=== PATIENT | female | born 1995 | race Caucasian/White ===

== ENCOUNTER → 2019-03-09 18:29 | Outpatient (ROUT) | payer BC, OTHER, SELFPAY | PROVIDERS: Visit Provider Family Medicine | DX: Z34.00 Encounter for supervision of normal first pregnancy, unspecified trimester (principal) | CPT/HCPCS: 87081 ==

== ENCOUNTER 2019-03-23 10:05 | Outpatient (CLI) | payer OTHER, SELFPAY | END 2019-03-23 10:47 | disposition home or self-care (01) | LOC: LABOR 10:51 → OB 16:07 | PROVIDERS: Visit Provider Family Medicine | DX: O26.893 Other specified pregnancy related conditions, third trimester (principal); Z3A.38 38 weeks gestation of pregnancy; R10.2 Pelvic and perineal pain | CPT/HCPCS: 59025; G0378; G0379 ==

== ENCOUNTER 2019-03-29 03:02 | Outpatient (CLI) | payer OTHER, SELFPAY | END 2019-03-29 04:30 | disposition home or self-care (01) | LOC: OB 03-31 13:38 | PROVIDERS: Visit Provider Family Medicine | DX: Z34.03 Encounter for supervision of normal first pregnancy, third trimester (principal); Z3A.39 39 weeks gestation of pregnancy | CPT/HCPCS: 59025; G0378; G0379 ==

== ENCOUNTER 2019-03-29 07:24 | Inpatient (IN) | payer OTHER, SELFPAY ==
[2019-03-29 09:01] LABS: Add Manual Diff / Slide Review NO; Basophils Absolute Auto 0 /uL (0-100); Basophils Percent Auto 0.1 % (0-2); Eosinophils Absolute Auto 0 /uL (0-450); Hematocrit 36.3 % (36-46); Hemoglobin 12.5 g/dL (12.0-16.0); Lymphocytes Absolute Auto 1200 /uL (1100-4500); Lymphocytes Percent Auto 6.7 % (25-40); Mean Corpuscular HGB Conc 34.4 % (30-36); Mean Corpuscular Hemoglobin 31.8 PG (26-34); Mean Corpuscular Volume 92.3 fL (80-100); Monocytes Absolute Auto 800 /uL (0-900); Monocytes Percent Auto 4.5 % (3-14); Neutrophils Absolute Auto 16100 /uL (1500-7000); Neutrophils Percent Auto 88.7 % (50-75); Platelet Count 224 X10^3/uL (150-400); Red Blood Cell Count 3.93 X10^6/uL (4.0-5.2); White Blood Cell Count 18.2 X10^3/uL (4.5-11.0)
[2019-03-29 09:14] VITALS: BP 118/65
[2019-03-29] MEDS: ONDANSETRON 4 MG/2 ML INJ IV (13:04)
[2019-03-29] MEDS: LACTATED RINGERS 1,000 ML 100 ML IV (13:09)
[2019-03-29] MEDS: CITRIC ACID/SODIUM CITRATE 15 ML SOLUTION 30 ML PO (18:01)
[2019-03-29] MEDS: OXYTOCIN 10 UNIT/ML VIAL 20 UNIT (19:43)
--- NOTE | 2019-03-29 20:17 | P.PCNOB_ITS ---
Labor & Delivery Delivery date: 03/29/19 Intrapartal events: None Cervical ripening method: none Delivery augmentation: rupture of membranes Delivery monitor: external FHT Route of delivery: L&D Laceration Description: Vaginal - 1st Degree Delivery repair: chromic Estimated blood loss (mL): 200 Anesthesia type: Epidural Complications: none Narrative: Identifying data: A 24-year-old at 39 and 3/7 weeks estimated gestational age presents to Labor and delivery in active labor and requesting an epidural. She had an unremarkable . She transferred care because she moved from [place] to [place] at about 26 weeks. GBS negative. Intact bag of water on presentation. Rh positive, status post Tdap Stage I lasted 12-1/2 hours Patient was noted to have made cervical change on her 2nd time to Labor and delivery on the date of delivery and was felt to be in active labor was requesting pain management requesting epidural. She was 3.5 cm dilated 80% effaced -1 station. Epidural was placed. We had difficulty keeping her comfortable because the epidural was low and she received multiple boluses and still was feeling significant discomfort in her upper upper abdomen with contractions. She had significant back labor as well prior to the epidural and still continued to have back pain. A 2nd epidural was placed at 4:00 p.m. which provided excellent analgesia. Artificial rupture membranes was performed at 12:30 p.m. which was 7 hours prior to delivery. Clear fluid was found. External heart monitor was used throughout stage I and showed a category 1 tracing. There were few periods of lower baseline into the low 100s and variable D cells with contractions but great variability during these decelerations and they were brief and not repetitive. Baseline was generally in the 120s to 130s with accelerations and moderate variability throughout. There were periods of sleep. External tocometer showed contractions every 2-4 minutes. Patient was noted to be complete at about 17 15 and she was allowed to labor down until 18 30 at which point she began pushing she was at 0 station at this time. Stage II lasted 58 minutes She was excellent pusher and was able to quickly bring the baby down. She c ontinued to be very comfortable with epidural. External heart monitor was used throughout the stay showing a baseline in the 1 teens to 120s with moderate variability and accelerations and deceleration into the 100s with pushing. She was able to lift the head sit on the perineum for quite some time and heart rate stayed in the mid 100s in 90s. She continue pushing and baby presented in the right occiput anterior position and very tight fit but baby was eventually pushed out and checked for cord and then anterior and posterior shoulders delivered without difficulty and baby was placed on mom's chest. Stage III lasted 6 minutes Normal spontaneous vaginal delivery of an intact placenta with a central cord insertion with a three-vessel cord. There was estimated blood loss of 200 cc or less. Tandem use of Pitocin was given prior to delivery of the placenta intramuscularly. There was a very small first-degree vaginal laceration and no other lacerations. There was no perineal laceration and no periurethral lacerations and no vaginal sidewall lacerations there was a periurethral cystic lesion that this remained intact. Who is approximately the size of a marbl. The vaginal laceration was repaired with 3 0 chromic. Baby's Apgars were 9 at 1 minute and 9 at 5 minutes and weight is pending. At the time this dictation both mom and baby are in stable condition.
--- NOTE | 2019-03-29 20:25 | PM.OBPNLAB ---
Date/Time Date Patient Seen: 03/29/19 Time Patient Seen: 17:15 Pain Control Pain control: epidural Comments: Patient is now comfortable and resting comfortably Pelvic Exam Dilation (cm): 10 station: -1 Amniotic membrane status: Ruptured Contractions Contractions on admission: regular Monitor mode: External Contraction frequency (min): 2 Contraction duration (min): 60 Contraction pattern: Regular Contraction intensity: Moderate Status status: Category l Heart Rate Baseline: 120 Monitor Accelerations: Present Monitor Decelerations: Variable Monitor Variability: Moderate Assessment and Plan Assessment: active labor Plan: continuous present management Comments: Patient is complete and comfortable. We will allow her to sleep and labored down and then will begin pushing in approximately an hour. A category 1 tracing. Previous negative. Continue with present care.
--- NOTE | 2019-03-29 20:28 | PM.OBHP.1 ---
OB HPI History of Present Condition Chief complaint: maternity Narrative: Mali Hunt is a 24 year old female at 39 and 3 7 weeks estimated gestational age with an EDC of 04/02/2019 based on LMP and 1st trimester ultrasound presents to Labor and delivery with complaints of painful uterine contractions that are now making cervical change and she is admitted in active labor and requesting epidural. Patient was in labor and delivery earlier in the night and was not making significant cervical change and she was sent home and she returned approximately 3 hours later with good cervical change. Past OB history: Unremarkable this is her 1st Past medical history: 1. Depression 2. Previous smoker Medications: vitamins Allergies: No history of allergies. The thought at 1 point she was allergic to IV Profant but she is not she has been taking it without difficulty though not taking it during this Past surgical history: Unremarkable care was begun early on. She initially was seen at [place] in clinic in telling him and then transferred care at 24 weeks due to moving to [place]. She had approximately 12 visits. Her blood pressure remained stable 100-110/52-64. She gained approximately 20 lb. Serology A positive, antibody screen negative, immune to rubella, history of chickenpox. VDRL hepatitis B negative HIV negative. Glucose tolerance test 103. Quad screen negative. Group B strep negative tetanus shot 01/30/2019 with pertussis Evaluation Evaluation Laboratory results: Laboratory Tests 03/29/19 03/29/19 08:15 08:15 WBC 18.2 H RBC 3.93 L Hgb 12.5 Hct 36.3 MCV 92.3 MCH 31.8 MCHC 34.4 RDW 13.0 Plt Count 224 Neut % (Auto) 88.7 H Lymph % (Auto) 6.7 L [place] % (Auto) 4.5 Eos % (Auto) 0.0 L Baso % (Auto) 0.1 Neut # (Auto) 30709 H Lymph # (Auto) 1200 [place] # (Auto) 800 Eos # (Auto) 0 Baso # (Auto) 0 Blood Type A Positive Antibody Screen Negative [facility] Social History Smoking Status: Former smoker Social History Smoking Status: Former smoker Meds Home Medications and Allergies Home Medications Medication Instructions Recorded Confirmed Type vit no.[id number] 1 tab PO DAILY 03/29/19 03/29/19 History [Classic ] Allergies Allergy/AdvReac Type Severity Reaction Status Date / Time No Known Drug Allergies Allergy Verified 03/29/19 09:18 Review of Systems Review of Systems Narrative: No abdominal pain. No lower extremity edema. No headaches. No change in fluid. ROS Unobtainable: All systems reviewed & are unremarkable except as noted in HPI and below Exam Vital Signs (past 8 hours): Afebrile vital signs are stable HEENT unremarkable Neck is supple without adenopathy Chest: Clear to auscultation without wheezes rhonchi or crackles Cor: Regular rate and rhythm without murmur Abdomen: Gravid, vertex, estimated weight 8 lb Extremities: No edema and DTRs are intact Cervical exam shows patient is 45 cm 90% effaced and -1 station. heart tracing baseline 120 to 130s with moderate variability with accelerations category 1 tracing. Uterine contractions every 2-3 minutes Objective Labs Result Diagrams: 03/29/19 08:15 Labs: Laboratory Results - last 24 hr 03/29/19 03/29/19 08:15 08:15 WBC 18.2 H RBC 3.93 L Hgb 12.5 Hct 36.3 MCV 92.3 MCH 31.8 MCHC 34.4 RDW 13.0 Plt Count 224 Neut % (Auto) 88.7 H Lymph % (Auto) 6.7 L [place] % (Auto) 4.5 Eos % (Auto) 0.0 L Baso % (Auto) 0.1 Neut # (Auto) 68604 H Lymph # (Auto) 1200 [place] # (Auto) 800 Eos # (Auto) 0 Baso # (Auto) 0 Blood Type A Positive Antibody Screen Negative Assessment and Plan Assessment and Plan Assessment and Plan narrative: 24-year-old at 39 and 3 7 weeks estimated gestational age in active labor Routine care Will attempt to get more comfortable 9 will come back and perform artificial rupture of membranes Continue with external heart monitor and tocometer Pitocin if needed GBS negative IH positive Time Spent with Patient Total time spent with greater than 50% in coordination of care (as documented) at patient's floor/unit and/or counseling patient:: Greater than 35 minutes
[2019-03-29] MEDS: IBUPROFEN 600 MG TABLET PO (20:38)
[2019-03-29] MEDS: DERMOPLAST SPRAY 20% 60 ML 1 SPRAY TOP (20:39)
[2019-03-29] MEDS: CALCIUM CARBONATE 500 MG TAB 1000 MG PO (20:45)
[2019-03-30] MEDS: IBUPROFEN 600 MG TABLET PO ×3 (03:18→17:46)
[2019-03-30] MEDS: LANOLIN OINT 7 GM 1 APPLIC TOP (03:18)
[2019-03-30 07:57] LABS: Hematocrit 32.5 % (36-46)
--- NOTE | 2019-03-30 08:27 | PM.OBPN.1 ---
Subjective - OB Subjective Patient comments: pain well controlled [place] baby status: doing well feeding status: exclusively breast feeding Date Patient Seen: 03/30/19 Time Patient Seen: 08:27 Interval history: Feeling well. Bleeding is improving. Minimal pain controlled with ibuprofen. Breast-feeding seems to be going well. Mom feels like she is doing well. Fatigue. Otherwise no changes Exam Vital Signs (past 8 hours): Alert smiling female fatigued in appearance no acute distress. Lungs are clear. Heart regular and rhythm uterus is firm at umbilicus. Extremities without cyanosis clubbing or edema. No calf tenderness Objective Labs Result Diagrams: 03/30/19 06:26 Labs: Laboratory Results - last 24 hr 03/29/19 03/29/19 03/30/19 08:15 08:15 06:26 WBC 18.2 H RBC 3.93 L Hgb 12.5 11.0 L Hct 36.3 32.5 L MCV 92.3 MCH 31.8 MCHC 34.4 RDW 13.0 Plt Count 224 Neut % (Auto) 88.7 H Lymph % (Auto) 6.7 L [place] % (Auto) 4.5 Eos % (Auto) 0.0 L Baso % (Auto) 0.1 Neut # (Auto) 32084 H Lymph # (Auto) 1200 [place] # (Auto) 800 Eos # (Auto) 0 Baso # (Auto) 0 Blood Type A Positive Antibody Screen Negative Assessment & Plan Plan day: 1 plan OB: routine care Time Spent With Patient Time: Total time spent is greater than 50% in coordination of care (as documented) at patient's floor/unit and/or counseling patient: Time with patient: 15-24 minutes
[2019-03-30] MEDS: PRENATAL VIT,CALC/IRON/FOLIC 1 TABLET 1 TAB PO (10:30)
[2019-03-30] MEDS: DOCUSATE 250 MG CAPSULE PO (10:30)
== END 2019-03-31 11:20 | disposition home or self-care (01) | DRG 807 ==
PROVIDERS: Admitting Provider Family Medicine; Visit Provider Family Medicine
DX: O71.4 Obstetric high vaginal laceration alone (principal); Z37.0 Single live birth; Z3A.37 37 weeks gestation of pregnancy
CPT/HCPCS: 01967; 36415; 59050; 85014; 85018; 85025; 86850; 86900; 86901; G0379; J2405; J2590; J3010

== ENCOUNTER → 2020-09-06 12:13 | Outpatient (CLI) | payer OTHER, SELFPAY ==
--- NOTE | 2020-09-06 12:15 | DI.US.S_ITS ---
PROCEDURE: US OB <= 14 WEEKS FETUS INDICATIONS: INITIAL SIZING AND DATING OUTSIDE/PRIOR DATING DATA: Last menstrual period (LMP): 07/14/2020 LMP-based estimated date of delivery (LEXI): 04/20/2021. First dating scan (date and location): 09/06/2020. Estimated date of delivery (LEXI) from first dating scan: 04/22/2021. TECHNIQUE: Real-time scanning was performed of the fetus and maternal pelvic organs, with image documentation. Endovaginal scanning was also performed to better visualize the fetus and maternal ovaries. COMPARISON: None. FINDINGS: Embryo: [place]-rump length measures 12 mm corresponding to 7 weeks 3 days. Heart rate measures 157 beats per minute. Measurement variability in dating: +/- 4 weeks by LMP, +/- 7 days by mean sac diameter (use before 6 weeks gestation if crown-rump length not able to be measured), +/- 5 days by crown-rump length (up to 8 weeks 6 days gestation), +/- 7 days by crown-rump length (up to 13 weeks 6 days gestation). Maternal organs: Adnexa within normal limits. IMPRESSION: 7 week 3 day single living IUP. Dictated by: Segundo Chavez [facility] Interpreted: Adria Ojeda MD on 09/06/2020 at 13:38 Approved by: Adria Ojeda M.D. on 09/06/2020 at 13:51
== END ==
PROVIDERS: PCP Family Medicine; Referring Provider Family Medicine; Visit Provider Family Medicine
DX: Z36.87 Encounter for antenatal screening for uncertain dates (principal); Z3A.01 Less than 8 weeks gestation of pregnancy
CPT/HCPCS: 76801; 76817

== ENCOUNTER → 2020-12-05 15:43 | Outpatient (CLI) | payer OTHER, SELFPAY ==
--- NOTE | 2020-12-05 15:44 | DI.US.S_ITS ---
PROCEDURE: US OB >= 14 WEEKS FETUS INDICATIONS: 20 WEEK ANATOMICAL SURVEY OUTSIDE/PRIOR DATING DATA: Last menstrual period (LMP): 07/14/2020 LMP-based estimated date of delivery (LEXI): 04/20/2021 . First dating scan (date and location): 09/16/2020, . Estimated date of delivery (LEXI) from first dating scan: 04/22/2021 . TECHNIQUE: Real-time scanning was performed of the fetus, with image documentation and biometric measurements. COMPARISON: None. FINDINGS: General: A single living intrauterine gestation is present. Presentation: Vertex. Placenta: Placental position is posterior , without previa. Amniotic fluid index: 13.6 cm, normal range is 5-24 cm. heart rate: 157 beats per minute. Maternal cervical canal: 4.3 cm long. Normal lower limit is 2.5 cm. biometrics: Biparietal diameter: 4.9 cm, 20 weeks 6 days Head circumference: 18.3 cm, 20 weeks 5 days Abdominal circumference: 15.2 cm, 20 weeks 3 days Femur length: 3.4 cm, 20 weeks 4 days Estimated gestational age from initial scan: not applicable. Composite gestational age from present scan: 20 weeks 5 days Estimated weight and percentile: 359 g +/-53 g, 59th percentile Measurement variability for biometric dating: +/- 7 days from 14 weeks to 15 weeks 6 days gestation, +/- 10 days from 16 weeks to 21 weeks 6 days gestation, +/- 2 weeks from 22 weeks to 27 weeks 6 days gestation, +/- 3 weeks for 28 weeks gestation or later. weight reference: 4500 g or EFW >90/95% is considered macrosomia or large for gestational age. EFW <10% is small for gestational age. EFW 5% or less is considered intra-uterine growth restriction. Anatomic survey: Neuro: Ventricles are non-dilated at less than 10 mm. Cisterna magna is normal at 3-11 mm. Cerebellum is normal in size and morphology. Nuchal skin fold: Normal at less than 6 mm between 14-21 weeks gestational age. Face: Nose and lips, facial profile are normal. Spine: No evidence for spina bifida. Heart: 4-chambered heart is present, with normal ventricular outflow tracts. Diaphragm: Diaphragm is intact. Stomach: Left-sided stomach is present. Kidneys: No hydronephrosis. Normal is less than 5 mm in 2nd trimester, less than 7 mm in 3rd trimester. Cord: 3-vessel cord has orthotopic insertion. Bladder: Normal in size. Extremities: All 4 extremities identified. IMPRESSION: 1. Living 2nd trimester intrauterine . 2. Estimated gestational age is 3 days greater than clinical age based on initial ultrasound. 3. Normal anatomy scan. Dictated by: Tayo Hogan M.D. on 12/06/2020 at 9:24 Approved by: Tayo Hogan M.D. on 12/06/2020 at 9:29
== END ==
PROVIDERS: PCP Family Medicine; Referring Provider Family Medicine; Visit Provider Family Medicine
DX: Z36.89 Encounter for other specified antenatal screening (principal); Z3A.20 20 weeks gestation of pregnancy
CPT/HCPCS: 76811

== ENCOUNTER → 2021-03-03 14:44 | Outpatient (CLI) | payer OTHER, SELFPAY ==
--- NOTE | 2021-03-03 | DI.US.S_ITS ---
PROCEDURE: US OB LIMITED INDICATIONS: SPOTTING OUTSIDE/PRIOR DATING DATA: Last menstrual period (LMP): 07/14/2020. LMP-based estimated date of delivery (LEXI): 04/20/2021 . First dating scan (date and location): 09/06/2020 . Estimated date of delivery (LEXI) from first dating scan: 04/22/2021 . TECHNIQUE: Real-time scanning was performed of the fetus, with image documentation and biometric measurements. Endovaginal scanning: No COMPARISON: [facility], OB >= 14 WEEKS FETUS, 12/05/2020, 14:52. FINDINGS: General: A single living intrauterine gestation is present. Presentation: Breech Placenta: Placental position is posterior , without previa. Amniotic fluid index: 14.5 cm, normal range is 5-24 cm. heart rate: 131 beats per minute. Maternal cervical canal: 5.5 cm long. Normal lower limit is 2.5 cm. Estimated gestational age from initial scan: 32 weeks 6 days IMPRESSION: Single living IUP redemonstrated and no source for vaginal bleeding identified. Dictated by: Segundo Chavez [facility] Interpreted: Baljit Winn MD on 03/03/2021 at 16:27 Transcribed by: ANUSHA on 03/03/2021 at 16:29 Approved by: Baljit Winn M.D. on 03/03/2021 at 17:14
== END ==
PROVIDERS: PCP Family Medicine; Referring Provider Family Medicine; Visit Provider Family Medicine
DX: O26.853 Spotting complicating pregnancy, third trimester (principal); Z3A.32 32 weeks gestation of pregnancy
CPT/HCPCS: 76815

== ENCOUNTER 2021-03-03 16:53 | Outpatient (CLI) | payer OTHER, SELFPAY | END 2021-03-03 17:45 | disposition home or self-care (01) | LOC: LABOR 16:56 → OB 03-04 07:01 | PROVIDERS: PCP Family Medicine; Referring Provider Family Medicine; Visit Provider Family Medicine | DX: O26.893 Other specified pregnancy related conditions, third trimester (principal); O26.853 Spotting complicating pregnancy, third trimester; N89.8 Other specified noninflammatory disorders of vagina; Z3A.32 32 weeks gestation of pregnancy; Z20.822 Contact with and (suspected) exposure to COVID-19 | CPT/HCPCS: 59025; 76815; C9803; G0378; G0379 ==

== ENCOUNTER → 2021-04-01 19:18 | Outpatient (ROUT) | payer OTHER, SELFPAY | PROVIDERS: PCP Family Medicine; Visit Provider Family Medicine | DX: Z34.80 Encounter for supervision of other normal pregnancy, unspecified trimester (principal) | CPT/HCPCS: 87081 ==

== ENCOUNTER → 2021-04-03 14:40 | Outpatient (CLI) | payer OTHER, SELFPAY ==
--- NOTE | 2021-04-03 | DI.US.S_ITS ---
PROCEDURE: US OB LIMITED INDICATIONS: SIZE AND FLUID OUTSIDE/PRIOR DATING DATA: Last menstrual period (LMP): 07/14/20. LMP-based estimated date of delivery (LEXI): 04/20/2021 . First dating scan (date and location): 09/06/2020 . Estimated date of delivery (LEXI) from first dating scan: 04/22/2021 . TECHNIQUE: Real-time scanning was performed of the fetus, with image documentation and biometric measurements. Endovaginal scanning: No COMPARISON: [facility], US OB LIMITED, 03/03/2021, 14:14. FINDINGS: General: A single living intrauterine gestation is present. Presentation: Breech. Placenta: Placental position is right fundal , without previa. Amniotic fluid index: 8 cm cm, normal range is 5-24 cm. heart rate: 124 beats per minute. Maternal cervical canal: Not well seen. biometrics: Biparietal diameter: 40 weeks Head circumference: Greater than 41 weeks Abdominal circumference: 38 weeks 5 days Femur length: 40 weeks 1 day Estimated gestational age from initial scan: 37 weeks 2 days Composite gestational age from present scan: 39 weeks 4 days Estimated weight and percentile: 2857 g; 97th percentile Measurement variability for biometric dating: +/- 7 days from 14 weeks to 15 weeks 6 days gestation, +/- 10 days from 16 weeks to 21 weeks 6 days gestation, +/- 2 weeks from 22 weeks to 27 weeks 6 days gestation, +/- 3 weeks for 28 weeks gestation or later. weight reference: 4500 g or EFW >90/95% is considered macrosomia or large for gestational age. EFW <10% is small for gestational age. EFW 5% or less is considered intra-uterine growth restriction. Other: Not applicable. IMPRESSION: Interval growth greater than expected with estimated weight at the 97th percentile. Macrosomia cannot be excluded and close clinical correlation and follow-up is recommended. Dictated by: Segundo Chavez [facility] Interpreted: Baljit Winn MD on 04/03/2021 at 16:38 Transcribed by: ANUSHA on 04/03/2021 at 16:40 Approved by: Baljit Winn M.D. on 04/03/2021 at 17:41
== END ==
PROVIDERS: PCP Family Medicine; Referring Provider Family Medicine; Visit Provider Family Medicine
DX: O36.63X0 Maternal care for excessive fetal growth, third trimester, not applicable or unspecified (principal); Z3A.39 39 weeks gestation of pregnancy
CPT/HCPCS: 76815

== ENCOUNTER 2021-04-04 07:03 | Observation (INO) | payer OTHER, SELFPAY ==
[2021-04-04] MEDS: TERBUTALINE 1 MG/ML VIAL SUBCUT (08:06)
--- NOTE | 2021-04-13 13:42 | PM.PROC.1 ---
Procedures Date/Time Date of procedure: 04/04/21 Time of procedure: 13:30 General Procedure description: External cephalic version After informed consent was obtained, and a reactive nonstress test seen, subQ terbutaline 0.25 mg given. By ultrasound, breech presentation with head upper right and spine right. Several attempts were made of external cephalic version and baby was changed to the transverse lie. heart rate in between each attempt was in the 140s. Nonstress test after the procedure was reactive. kick counts reviewed with the patient. She tolerated the procedure well. Complications: none
== END 2021-04-04 09:30 | disposition home or self-care (01) ==
PROVIDERS: Admitting Provider Family Medicine; PCP Family Medicine; Referring Provider Family Medicine; Visit Provider Family Medicine
DX: O32.1XX0 Maternal care for breech presentation, not applicable or unspecified (principal); Z3A.37 37 weeks gestation of pregnancy
CPT/HCPCS: 59025; 59050; 59412; 76815; 96372; G0378; G0379

== ENCOUNTER 2021-04-07 11:24 | Observation (INO) | payer OTHER, SELFPAY ==
[2021-04-07] MEDS: TERBUTALINE 1 MG/ML VIAL SUBCUT (12:46)
--- NOTE | 2021-04-07 13:02 | DI.US.S_ITS ---
PROCEDURE: US UMBILICAL CORD DOPPLER INDICATIONS: POST EXTERNAL VERSION - DECELERATION. CORD LOCATION/DOPPLER. OUTSIDE/PRIOR DATING DATA: Last menstrual period (LMP): 07/14/2020. LMP-based estimated date of delivery (LEXI): 04/20/2021. First dating scan (date and location): 09/06/2020. Estimated date of delivery (LEXI) from first dating scan: 04/22/2021. COMPARISON: None. TECHNIQUE: Real-time scanning was performed of the fetus, with image documentation. Color and pulse Doppler interrogation was then performed of the umbilical artery near its insertion into the placenta. FINDINGS: General: Single living intrauterine gestation is present. Fetus is in vertex presentation. Placenta location is right fundal, no placenta previa. heart rate is 130 beats per minute. Cervix is closed, cervical length measures 4.6 cm. Estimated gestational age based on initial ultrasound is 37 weeks, 6 days. Umbilical artery: There is no evidence of nuchal cord. Cord insertion is not well seen secondary to position. Umbilical artery S/D ratio measures 2.0, 2.2 and 2.7 IMPRESSION: Normal umbilical cord artery S/D ratio. No evidence of nuchal cord. Dictated by: Baljit Winn M.D. on 04/07/2021 at 13:59 Approved by: Baljit Winn M.D. on 04/07/2021 at 14:10
--- NOTE | 2021-04-13 13:46 | PM.PROC.1 ---
Procedures Date/Time Date of procedure: 04/07/21 Time of procedure: 13:30 General Procedure description: External cephalic version Informed consent was obtained. A reactive nonstress test was observed. With Dr. Sanchez elevating the breech from below, external cephalic version was performed and was successful. There was a decrease in the baby's heart rate to the low 100s for about a minute. Position changes were performed to bring the heart rate back up to normal. An ultrasound was performed which showed no nuchal cord. Cord Dopplers were normal. The patient was monitored for about 2 hours with a reactive nonstress test after the procedure. A belt was fitted for the patient to keep the vertex down. The patient tolerated the procedure well. Complications: none
== END 2021-04-07 16:00 | disposition home or self-care (01) ==
PROVIDERS: Admitting Provider Obstetrics & Gynecology; PCP Family Medicine; Referring Provider Obstetrics & Gynecology; Visit Provider Obstetrics & Gynecology
DX: O32.1XX0 Maternal care for breech presentation, not applicable or unspecified (principal); Z3A.37 37 weeks gestation of pregnancy
CPT/HCPCS: 59025; 59050; 59412; 76815; 76820; 96372; G0378; G0379

== ENCOUNTER 2021-04-16 11:04 | Outpatient (CLI) | payer OTHER, SELFPAY | END 2021-04-16 12:00 | disposition home or self-care (01) | LOC: OB 04-17 07:38 | PROVIDERS: PCP Family Medicine; Referring Provider Family Medicine; Visit Provider Family Medicine | DX: O47.1 False labor at or after 37 completed weeks of gestation (principal); O32.1XX0 Maternal care for breech presentation, not applicable or unspecified; Z3A.39 39 weeks gestation of pregnancy | CPT/HCPCS: 59025; G0378; G0379 ==

== ENCOUNTER 2021-04-17 12:50 | Inpatient (IN) | payer OTHER, SELFPAY ==
[2021-04-17 14:18] LABS: Add Manual Diff / Slide Review NO; Basophils Absolute Auto 0 /uL (0-100); Basophils Percent Auto 0.1 % (0-2); Eosinophils Absolute Auto 0 /uL (0-450); Eosinophils Percent Auto 0.2 % (2-4); Hemoglobin 12.5 g/dL (12.0-16.0); Lymphocytes Absolute Auto 2000 /uL (1100-4500); Lymphocytes Percent Auto 14.1 % (25-40); Mean Corpuscular HGB Conc 33.7 % (30-36); Mean Corpuscular Hemoglobin 31.4 PG (26-34); Mean Corpuscular Volume 93.1 fL (80-100); Monocytes Absolute Auto 1200 /uL (0-900); Monocytes Percent Auto 8.7 % (3-14); Neutrophils Absolute Auto 10700 /uL (1500-7000); Neutrophils Percent Auto 76.9 % (50-75); Platelet Count 219 X10^3/uL (150-400); Red Blood Cell Count 3.97 X10^6/uL (4.0-5.2); Red Cell Distribution Width 12.9 % (11.6-14.8); White Blood Cell Count 13.9 X10^3/uL (4.5-11.0)
[2021-04-17] MEDS: LACTATED RINGERS 1,000 ML 999 ML IV (14:18)
[2021-04-17 15:07] LABS: COVID19 - ADMIT (NP swab/PCR) Negative (Negative)
[2021-04-17] MEDS: FENT 2MCG/ML BUPIV 0.125% EPI 200 MCG/100 ML PLAST..BAG 20 MCG EPIDURAL (15:48)
--- NOTE | 2021-04-17 16:02 | PM.OBPNLAB ---
Date/Time Date Patient Seen: 04/17/21 Time Patient Seen: 16:02 Pain Control Pain control: epidural Comments: Patient comfortable with epidural in place Pelvic Exam Dilation (cm): 9 Effacement (%): 100 station: -1 Amniotic membrane status: Bulging Comments: A ROM resulted in clear fluid at 1552 Contractions Date/Time contractions began: 8:00 a.m. Contractions on admission: regular Monitor mode: External Contraction frequency (min): 3 Contraction duration (min): 1 Contraction pattern: Regular Contraction intensity: Strong/Firm Status status: Category l Heart Rate Baseline: 140 Monitor Accelerations: Present Monitor Decelerations: Variable Monitor Variability: Moderate Assessment and Plan Assessment: active labor Plan: continuous present management Comments: 26-year-old at 39 and 3 7th weeks estimated gestational age with spontaneous onset of uterine contractions presents to Labor and delivery in active labor with the dilation 5 and half to 6 and 100% effaced with regular painful contractions. Patient was requesting epidural an epidural was placed. Patient with 9 cm cervix Reassuring heart tones A rum resulting clear fluid GBS negative 1 hour glucose tolerance test 109 Quad screen negative and MSA P negative Unremarkable other than breech presentation and version performed approximately 10 days ago Vertex presentation is confirmed with ultrasound
[2021-04-17 16:06] VITALS: BP 110/62; BP 99/59; PULSE 70; RESP 17; TEMP 36.9
[2021-04-17 17:06] VITALS: BP 98/59
--- NOTE | 2021-04-17 17:36 | P.PCNOB_ITS ---
Events: Other Labor & Delivery Delivery date: 04/17/21 Intrapartal Events: None Cervical ripening method: none Induction method: none Delivery augmentation: rupture of membranes Delivery monitor: external FHT and external uterine Route of delivery: Episiotomy description: None L&D Laceration Description: Perineal - 1st Degree Delivery repair: chromic Estimated blood loss (mL): 250 Anesthesia Type: Epidural Narrative: 26-year-old who presents to Labor and delivery in active labor on day of delivery. She had unremarkable other than persistent breech presentation underwent a version at approximately 38 weeks. Baby remained vertex and patient had spontaneous labor. She presented to Labor and delivery with intact bag of water 6 cm dilated 100% effaced with having regular painful contractions. GBS negative, Rh positive, 1 hour glucose tolerance test was 109, H&H normal, MS AFP negative and quad screen negative Stage I lasted 8 hours Patient started having infrequent uterine contractions at 8:00 a.m.. Uterine contractions progressed every 5 minutes apart at 10 30 and at that point was felt that patient was in active labor. She presented to Labor and delivery and was found to be 6 cm dilated. She was requesting epidural. Epidural was placed at 2:39 p.m. and patient had excellent anesthesia. She did feel the contractions with pushing and lots of pressure but overall had excellent control. Artificial rupture membranes was done at 3:52 p.m. and resulted in moderate amount of clear fluid. This was 1 hour and 8 minutes prior to delivery. Patient was 9 cm at that time. External tocometer was used throughout stage I and showed uterine contractions every 2-3 minutes apart. External heart monitor was used throughout this stage which showed a baseline in the 140s with accelerations and occasional deceleration towards the end of stage I that was variable and very mild. Moderate variability throughout stage I with reactive heart tracing category 1 strip. Ultrasound was done early in stage I to confirm vertex presentation due to previous breech presentation. Patient was noted to be complete at 4:48 p.m. Stage II lasted 9 minutes Patient was noted to be complete at 4:48 p.m. and began pushing at 4:51 p.m.. Patient was very effective in pushing but felt significant pressure so would push for very brief periods of time. She was able to bring the baby down without difficulty and baby was in TYRESE presentation. The head was delivered and there was a nuchal cord x1 that was loose that was reduced on the perineum. T here was concern for possible shoulder dystocia due to size of head he and tight fit and bed was placed down but baby was quickly deliver the anterior and the posterior shoulder and baby was then placed on mom's chest. Baby was vigorous at with Apgars 8 at 1 minute 9 at 5 minutes. weight is still pending. External tocometer was used throughout this stage as soon as rupture membranes occurred contractions were more frequent. Every 2 minutes. Patient felt pressure. Epidural was in place and working. External heart monitor showed reassuring heart tones baseline 135-140 with accelerations and moderate variability and occasional had compressions very mild with contractions barely discernible. Stage III lasted 4 minutes Resulted in the normal spontaneous vaginal delivery of an intact large placenta with a central cord insertion. There was 250 cc of blood loss. There was a very small left perineal first-degree laceration that was repaired with 3-0 chromic. IM Pitocin was given and then Pitocin run into the bag. Due to patient having increase in bleeding after 5 minutes the placenta came out. The small first-degree laceration was repaired without difficulty in the usual fashion At the time of dictation mom and baby are in stable condition Plan for aftercare: Routine care
--- NOTE | 2021-04-17 18:44 | PM.OBHP.1 ---
OB HPI Date/Time Date of admission: 04/17/21 Date Patient Seen: 04/17/21 Time Patient Seen: 13:00 History of Present Condition Chief complaint: IN LABOR : 2 Para: 1 Estimated Date of Delivery: 04/22/21 Estimated Gestational Age (weeks): 39.3 Narrative: Mali Hunt is a 26 year old female at 3937 weeks estimated gestational age based on a 7 week ultrasound with an EDC of 04/22/2021 but by her LMP due date of 04/17/2021. Patient presents to Labor and delivery active labor. She states her contractions started at 8 were infrequent every 10 minutes apart and then increased her frequency to every 5 minutes apart by 10 30 and then she started to come to in a [place]. She lives and telling him. She had no rupture membranes. She denies bleeding. She denied any discharge. She denied any headaches. Denies any swelling or min epigastric tenderness. Patient unremarkable that was complicated only by persistent breech presentation and underwent a version at 38 weeks gestation. It took 2 attempts. Baby has maintained vertex presentation since then. History of Present care: good care, initiated at week # (Seven weeks), number of visits (12) and pounds weight gain (29) Dating criteria: LMP confirmed by 1st trimester US Ultrasounds: normal 1st trimester US and normal mid trimester US Obstetrical complications: other (Breech presentation underwent diversion at 38 weeks) Medical complications: none Narrative: Patient had excellent blood pressure throughout Preadmission Labs Blood type: A (+) positive HCT: 32.8 HCAB: negative PAP: Normal Quad screen: Normal 1 hr GTT: 109 Narrative: Varicella immune, rubella immune, knitting gonorrhea negative, urine negative: GBS negative in Pap normal HIV negative status post flu shot. Patient did not have COVID vaccine. MS AFP was negative Prior (ies) History: 03/29/2019 at 39 and 4 7th weeks gestation after 18 hours of labor normal spontaneous vaginal delivery of a viable male infant weighing 8 lb 9 oz name Breezy with epidural at [facility]. 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 water heater temp set < 120 deg: Yes working smoke detector in home: Yes fire extinguisher in home: Yes carbon monox detector in home: Yes firearms in home: Yes firearms unloaded and locked: Yes do you feel safe at home: Yes Smoking Status: Former smoker alcohol intake: current substance use type: does not use during the past year weight has: increased > 10 lbs well-balanced diet: daily or most days daily servings fruits/ve-1 caffeine: Yes (1-2 drinks per day, rare on soda) eating out: rarely or never frequency: 3-4 times per week Meds Home Medications and Allergies Home Medications Medication Instructions Recorded Confirmed Type vits no.126-ferrous fum 1 tab PO DAILY 03/29/19 03/29/19 History 28 mg iron-folic acid 800 mcg tablet (Classic ) docusate sodium 250 mg capsule 250 mg PO DAILY #20 cap 03/31/19 Rx ibuprofen 600 mg tablet 600 mg PO Q6HR PRN #60 tab 03/31/19 Rx Allergies Allergy/AdvReac Type Severity Reaction Status Date / Time No Known Drug Allergies Allergy Verified 03/29/19 09:18 Review of Systems Review of Systems Narrative: No fever, chills, cough No change in discharge No leaking fluid No swelling or headaches Exam Narrative Exam Narrative: Afebrile vital signs are stable. Patient is breathing through contractions and managing pain well HEENT: Unremarkable Neck: Supple Chest: Clear to auscultation Cor: Regular rate and rhythm without a murmur Abdomen: Gravid, vertex, proven with ultrasound at bedside. Estimated weight 8-8 now lb Extremities no edema, DTRs intact Cervix: 6 cm, 100% effaced, -1 station, intact bag of water The heart tracing 145 with accelerations and moderate variability and no decelerations, and reactive, category 1 tracing Objective Labs Result Diagrams: 04/17/21 14:05 Labs: Laboratory Results - last 24 hr 04/17/21 04/17/21 04/17/21 13:48 14:05 14:05 WBC 13.9 H RBC 3.97 L Hgb 12.5 Hct 37.0 MCV 93.1 MCH 31.4 MCHC 33.7 RDW 12.9 Plt Count 219 Neut % (Auto) 76.9 H Lymph % (Auto) 14.1 L [place] % (Auto) 8.7 Eos % (Auto) 0.2 L Baso % (Auto) 0.1 Neut # (Auto) 85648 H Lymph # (Auto) 2000 [place] # (Auto) 1200 H Eos # (Auto) 0 Baso # (Auto) 0 SARS-CoV-2 (PCR) Negative Blood Type A Positive Antibody Screen Negative Assessment and Plan Assessment and Plan Assessment and Plan narrative: 26-year-old at 39 and 3/7 weeks estimated gestational age in active labor Admit Epidural Artificial rupture membranes once comfortable External tocometer heart monitor GBS negative Glucose tolerance test 109 Vertex presentation
[2021-04-18 02:34] VITALS: TEMP 36.8
[2021-04-18] MEDS: IBUPROFEN 600 MG TABLET PO ×3 (02:34→15:05)
[2021-04-18 07:42] LABS: Hematocrit 33.2 % (36-46); Hemoglobin 11.1 g/dL (12.0-16.0)
--- NOTE | 2021-04-18 14:25 | P.DS_ITS ---
History of Present Illness History of Present Illness Chief complaint: IN LABOR Discharge Providers Provider Date of admission: 04/17/21 12:50 Discharge Date: 04/18/21 Primary care physician: Winsome Childers MD Consults: 04/18/21 17:28 Consult to [employer] Assistant Manager Routine Comment: Discharge provider: Winsome Childers MD Summary Hospital Course Hospital Course: Term gestation status post normal spontaneous vaginal delivery Status at Discharge Cognitive/behavioral status at discharge: at baseline, oriented Functional status at discharge: independent ambulation Overall status at discharge: patient is progressing back to baseline Time Spent with Patient Time spent: Less than 30 minutes Exam Narrative Exam Narrative: Afebrile, vital signs are stable Neck is supple Chest clear to auscultation Cor regular rate and rhythm Abdomen benign. 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 water heater temp set < 120 deg: Yes working smoke detector in home: Yes fire extinguisher in home: Yes carbon monox detector in home: Yes firearms in home: Yes firearms unloaded and locked: Yes do you feel safe at home: Yes Smoking Status: Never smoker alcohol intake: current substance use type: does not use during the past year weight has: increased > 10 lbs well-balanced diet: daily or most days daily servings fruits/ve-1 caffeine: Yes (1-2 drinks per day, rare on soda) eating out: rarely or never frequency: 3-4 times per week Discharge Assessment & Plan Assessment and Plan Assessment: 26-year-old day 1. Status post normal spontaneous vaginal delivery without complications Plan of Treatment: Discharge home with routine instructions regarding infection, breast-feeding, e ating, lifting precautions and pelvic rest Discharge Plan Discharge Plan Patient Disposition: Home Discharge orders & Medications Prescriptions: New docusate sodium 100 mg Capsule 100 mg PO DAILY Qty: 30 RF: 1 Continued Classic 28 mg iron- 800 mcg Tablet 1 tab PO DAILY RF: 0 docusate sodium 250 mg Capsule 250 mg PO DAILY Qty: 20 RF: 1 Discontinued ibuprofen 600 mg Tablet 600 mg PO Q6HR PRN (Reason: Pain, Mild (1-3)) Qty: 60 RF: 0 Follow up/Referrals: Winsome Childers MD [Primary Care Provider] - 2 Weeks (Follow up with , May 01 at 11:15AM) Diet/Activity/Treatments Diet: Diet as Tolerated Activity: pelvic rest; no heavy lifting Skin/Wound/Dressing Care Report to your healthcare provider any signs of infection, such as:: chills, fever, night sweats, increased pain, unusual drainage and unusual redness Discharge Data Primary Care Provider: Winsome Childers
== END 2021-04-18 16:30 | disposition home or self-care (01) | DRG 807 ==
PROVIDERS: Admitting Provider Family Medicine; PCP Family Medicine; Referring Provider Family Medicine; Visit Provider Family Medicine
DX: O70.0 First degree perineal laceration during delivery (principal); Z37.0 Single live birth; Z3A.39 39 weeks gestation of pregnancy; Z20.822 Contact with and (suspected) exposure to COVID-19
CPT/HCPCS: 01967; 36415; 59050; 76815; 85014; 85018; 85025; 86850; 86900; 86901; 87635; C9803; G0379